=== PATIENT | female | born 1940 | race Two or more races ===

== ENCOUNTER → 2024-09-16 | Day surgery (SDC) | payer MEDICAID ==
[2024-09-10 14:26] LABS: Hematocrit 42.4 % (36.0-46.0); Hemoglobin 14.4 g/dL (12.2-16.2); Mean Corpuscular Hemoglobin 30.1 pg (28.0-32.0); Mean Corpuscular Volume 88.3 fL (80.0-100.0); Nucleated Red Blood Cells % 0.2 %
[2024-09-10 14:37] LABS: Urine Protein, UAD Negative (Negative)
[2024-09-10 14:38] LABS: INR 1.08 (0.9-1.15); Partial Thromboplastin Time 27.3 SEC (24.5-34.5); Prothrombin Time 11.4 sec (9.3-11.8)
[2024-09-10 14:45] LABS: Alanine Aminotransferase 14 U/L (7-40); Albumin 4.3 g/dL (3.2-4.8); Alkaline Phosphatase 66 U/L (46-116); Anion Gap 6 (5-15); BUN/Creatinine Ratio 24.6 (10.0-20.0); Bilirubin, Total 0.5 mg/dL (0.2-1.0); Blood Urea Nitrogen 14 mg/dL (9-23); Calcium 10.0 mg/dL (8.7-10.4); Carbon Dioxide 28 mmol/L (20-31); Chloride 109 mmol/L (98-107); Glucose 78 mg/dL (74-106); Potassium 4.2 mmol/L (3.5-5.1); Sodium 143 mmol/L (136-145); Total Protein 6.4 g/dL (5.7-8.2)
[~2024-09-16] VITALS: Ht 167.6 cm; Wt 70.3 kg
[~2024-09-16] MED LIST: ONDANSETRON HCL 4 MG/2 ML VIAL ONE
--- NOTE | 2024-09-16 11:10 | DVHHP2 ---
GI H&P Pre-Op Assessment Date: 09/16/24 Chief complaint: Epigastric pain HPI: per clinic note Past medical history: per clinic note Past surgical history: per clinic note Family history: per clinic note Physical exam: General: NAD, AAOX3 HEENT: PERRL, no scleral icterus, normal hearing, gums without lesions or b leeding, oropharynx clear without erythema or exudate. Neck: Supple without enlargement of the thyroid, or lymphadenopathy. Chest: Normal size and shape, no tenderness, lung herr clear to auscultation and percussion, nonlabored breathing. Heart: RRR, no murmur Abdomen: non-distended, no tenderness to palpation, +BS, no hepatosplenomegaly Extremities: no edema Neurological: CN II-XII intact, sensation intact in all extremities, 5+ strength in all extremities Skin: No rashes, No jaundice Assessment: - Epigastric pain Plan: - EGD - Risks (bleeding, infection, perforation, reaction to sedation medications and cardiopulmonary arrest) and benefit of the procedure were explained to patient. Patient agrees to undergo the procedure. KELSI RUFFIN MD Sep 16, 2024 11:10
[2024-09-16 11:26] VITALS: PULSE 78; RESP 19; TEMP 98.9; O2SAT 99
--- NOTE | 2024-09-16 11:26 | DVHOP2 ---
Operative Report DATE OF OPERATION: 09/16/24 PROCEDURE: Upper Endoscopy. PREOPERATIVE INDICATION: The patient is a 84 -year-old female undergoing endoscopy for epigastric pain and nausea. POSTOPERATIVE DIAGNOSES: 1. Moderate gastritis. PROCEDURE PERFORMED BY: Jalil Subramanian SCOPE: Olympus videoendoscope. ASA CLASS: 2 PREOPERATIVE MEDICATIONS: MAC with Vinny VALERO PROCEDURE IN DETAIL: After obtaining an informed consent, the patient was placed on left lateral decubitus position. The patient was then sedated with the above medications. A bite block was placed between her teeth. The en doscope was then passed through the oropharynx, into the esophagus, and through the stomach and pylorus up to the second and third part of the duodenum. The duodenum was normal in appearance. There was moderate gastritis. Gastric biopsies were obtained. The GE junction was normal in appearance at 34 cm. The esophagus was normal in appearance. The endoscope was then withdrawn. The patient tolerated the procedure well without difficulty. COMPLICATIONS : None SPECIMENS: Gastric biopsies DISPOSITION: D/C to home PLAN: 1. Await for biopsy result 2. Continue with omeprazole JALIL SUBRAMANIAN MD Sep 16, 2024 11:26
--- NOTE | 2024-09-16 11:27 | DVHDS2 ---
Physician Discharge Progress N Final Diagnosis: Gastritis Operations or Procedures: Operations or Procedures EGD with cold biopsies Condition on Discharge: Good Disposition: Home Discharge Instructions: Diet: Regular Activity: No Restrictions, As Tolerated Medications: Resume previous home medications Follow Up Care: Discharge Statement: "Patient was advised to return to the ER or call 911 if any headaches, dizziness, shortness of breath, chest pain, abdominal pain, bleeding, fevers, or worsening of medical condition. Patient was counseled about treatment plan, medications, possible side effects, patientverbalized understanding. All questions were answered to the best of my ability. This discharge took greater then 30 minutes in planning, reviewing documentation, counseling the patient, and discussing with other team members." KELSI RUFFIN MD Sep 16, 2024 11:26
[2024-09-16 12:00] VITALS: BP 158/69; PULSE 68; RESP 15; O2SAT 96
== END | disposition home or self-care (01) ==
LOC: GI 08:49
PROVIDERS: ATTEND Internal Medicine Gastroenterology
DX: K29.50 Unspecified chronic gastritis without bleeding (principal); K31.A0 Gastric intestinal metaplasia, unspecified
CPT/HCPCS: 36415; 43239; 80053; 81001; 85025; 85610; 85730; 88305; 88342; J2405; J7030